=== PATIENT | male | born 1980 | race Caucasian/White ===

== ENCOUNTER 2022-12-12 21:20 | Emergency (ER) | payer MEDICAID, OTHER ==
[~2022-12-12] VITALS: Ht 170.2 cm; Wt 106.8 kg
[2022-12-12 21:40] VITALS: BP 142/92
== END 2022-12-13 01:35 | disposition left against medical advice (07) ==
LOC: ER 21:25
DX: M25.532 Pain in left wrist (principal); M54.2 Cervicalgia; Z53.21 Procedure and treatment not carried out due to patient leaving prior to being seen by health care provider; Y04.2XXA Assault by strike against or bumped into by another person, initial encounter; Y93.89 Activity, other specified; Y92.89 Other specified places as the place of occurrence of the external cause; Y99.8 Other external cause status
CPT/HCPCS: 70450; 72125; 73110